=== PATIENT | female | born 1970 | race Caucasian/White ===

== ENCOUNTER 2016-09-01 21:19 | Emergency (ER) | payer OTHER ==
[~2016-09-01] VITALS: Ht 157.5 cm; Wt 64.8 kg
[~2016-09-01 21:19] MED LIST: ADVAIR 250/501 DISK IH; ADVAIR HFA120 INHALA IH; AERONEB GO NEB1 EACH MC; ANAPROX DS550 M1 PO; ATARAX,VISTARIL25 MG PO; ATIVAN1 MG PO; AUGMENTIN875 MG; BENTYL10 MG PO; CLEOCIN300 MG PO; COLACE100 MG PO; DUONEB 2.5-0.5 M3 ML AEROSOL; EUCERIN CREME120 GM TP; FLEXERIL10 MG PO; GLYBURIDE5 MG PO; HALOBETASOL PRO15 GM TP; HYDROCORTISONE60 GM TP; IBUPROFEN800 MG PO; KEFLEX500 MG PO; KEPPRA250 MG PO; KEPPRA500 MG PO; LEVEMIR FL100 UNIT/1 SC; LEVETIRACETAM500 MG PO; LEVOFLOXACIN750 MG PO; LORATADINE10 M2 PO; MILLIPRED DP5 M1 PO; MOTRIN800 MG PO; MUCINEX600 MG PO; NOHOMEMEDS; NOVOLOG PE100 UNITS/ SC; OXYCODONE30 MG PO; PEN-VEE K,VEET500 MG PO; PREDNISONE20 MG PO; PROMETHAZINE HC25 M1 PO; SIMVASTATIN40 MG PO; TORADOL10 MG PO; VENTOLIN HFA18 GM IH; VICODIN 5-5001 EACH PO; ZOFRAN ODT4 MG PO; ZOFRAN4 MG PO
[2016-09-01 21:46] LABS: POINT-OF-CARE METER ID UU13113778
[2016-09-01 22:53] LABS: HEMATOCRIT 42.2 % (36.0-46.0); MCH 29.2 PG (29.0-34.0); MCHC 32.7 G/DL (30.0-36.0); MCV 89.4 FL (83-99); MEAN PLAT.VOLUME 9.4 uM^3 (9.5-12.4); PLATELET COUNT 353 K/uL (156-360); RBC DIS.WIDTH-CV 14.6 % (11.8-14.6); RBC DIS.WIDTH-SD 47.2 % (39-53); RED BLOOD COUNT 4.72 M/uL (3.80-5.20); WHITE BLOOD COUNT 12.6 K/uL (4.1-10.2)
[2016-09-01 22:58] LABS: ADD MIUA? NO; BILIRUBIN NEGATIVE; BLOOD NEGATIVE; COLOR STRAW ((YELLOW)); GLUCOSE (STRIP) >=500; KETONES NEGATIVE; LEUKOCYTES NEGATIVE; NITRITE NEGATIVE; PROTEIN (STRIP) NEGATIVE; SPECIFIC GRAVITY 1.001 (1.000-1.030); UCUL ADDED? NO; UROBILINOGEN 0.2 MG/DL (0.2-1.0)
[2016-09-01 23:01] LABS: CARBON DIOXIDE (BICARBONATE) 23.9 MEQ/L (20-31); CHLORIDE 109 mEq/L (99-109); POTASSIUM 3.8 mEq/L (3.7-5.4); SODIUM 140 mEq/L (136-147)
[2016-09-01 23:02] LABS: GLUCOSE 249 mg/dL (70-99)
[2016-09-01 23:04] LABS: ANION GAP 10 MEQ/L (2-14)
[2016-09-01 23:05] LABS: SERUM ETHYL ALCOHOL < 10 mg/dL
[2016-09-01 23:06] LABS: GFR ESTIMATE (CALCULATED) > 59 mL/min/
[2016-09-01 23:06] LABS: AMPHETAMINE NEGATIVE (500 ng/mL); BARBITURATES NEGATIVE (200 ng/mL); BENZODIAZEPINES NEGATIVE (150 ng/mL); COCAINE NEGATIVE (150 ng/mL); INTERNAL CONTROLS VALID? YES; METHADONE NEGATIVE (200 ng/mL); METHAMPHETAMINE NEGATIVE (500 ng/mL); OPIATES (MORPHINE) NEGATIVE (100 ng/mL); OXYCODONE NEGATIVE (100 ng/mL); PHENCYCLIDINE NEGATIVE (25 ng/mL); PROPOXYPHENE NEGATIVE (300 ng/mL); THC CANNABINOIDS NEGATIVE (50 ng/mL); TRICYCLIC ANTIDEPRESSANTS NEGATIVE (300 ng/mL)
[2016-09-01 23:07] LABS: UREA NITROGEN (BUN) 11 mg/dL (9-23)
[2016-09-01 23:09] LABS: CREATINE KINASE 79 IU/L (1-294); TOTAL CK 79 IU/L (1-294)
[2016-09-01 23:13] LABS: TROP-I INTERPRETATION NEGATIVE; TROPONIN-I < 0.01 ng/mL (0.0-0.30)
[2016-09-01 23:14] LABS: QUANTITATIVE HCG < 4.0 MIU/ML
[2016-09-01 23:15] LABS: CK-MB 1.3 ng/mL (0.0-4.9)
[2016-09-02 00:35] LABS: POINT-OF-CARE METER ID UU13113702
[2016-09-02 01:02] VITALS: BP 112/77
== END 2016-09-02 01:18 | disposition home or self-care (01) ==
LOC: EME 21:19
PROVIDERS: Emergency Medicine
DX: F41.1 Generalized anxiety disorder (principal); E11.65 Type 2 diabetes mellitus with hyperglycemia
CPT/HCPCS: 71020; 80048; 81003; 82550; 82553; 82803; 82948; 84484; 84702; 85027; 85379; 99281; 99285; G0480; J1885; J3010; J7030

== ENCOUNTER 2016-09-23 18:39 | Emergency (ER) | payer OTHER ==
[~2016-09-23] VITALS: Ht 157.5 cm; Wt 65.6 kg
[2016-09-23 22:20] LABS: HEMATOCRIT 45.9 % (36.0-46.0); MCH 29.2 PG (29.0-34.0); MCHC 32.7 G/DL (30.0-36.0); MCV 89.5 FL (83-99); MEAN PLAT.VOLUME 9.4 uM^3 (9.5-12.4); PLATELET COUNT 430 K/uL (156-360); RBC DIS.WIDTH-CV 14.1 % (11.8-14.6); RBC DIS.WIDTH-SD 46.4 % (39-53); RED BLOOD COUNT 5.13 M/uL (3.80-5.20); WHITE BLOOD COUNT 15.6 K/uL (4.1-10.2)
[2016-09-23 22:31] LABS: CHLORIDE 110 mEq/L (99-109); POTASSIUM 4.2 mEq/L (3.7-5.4); SODIUM 139 mEq/L (136-147)
[2016-09-23 22:33] LABS: GLUCOSE 181 mg/dL (70-99)
[2016-09-23 22:35] LABS: ANION GAP 11 MEQ/L (2-14); TOTAL BILIRUBIN 0.2 mg/dL (0.0-1.0)
[2016-09-23 22:37] LABS: ALKALINE PHOSPHATASE 89 IU/L (3-129); GFR ESTIMATE (CALCULATED) > 59 mL/min/
[2016-09-23 22:38] LABS: UREA NITROGEN (BUN) 11 mg/dL (9-23)
[2016-09-23 22:57] LABS: INTERNAL CONTROL VALID? YES; MONOSPOT (MONONUCLEOSIS SEROL) NEGATIVE
[2016-09-23 23:11] LABS: INFLUENZA A VIRAL ANTIGEN NEGATIVE; INFLUENZA B VIRAL ANTIGEN NEGATIVE
[2016-09-24] MEDS ORDERED: AUGMENTIN875 MG PO (00:51)
[2016-09-24] MEDS ORDERED: ATIVAN1 MG PO (00:51)
[2016-09-24 01:05] VITALS: BP 134/108
== END 2016-09-24 01:14 | disposition home or self-care (01) ==
LOC: EME 18:39
PROVIDERS: Physician Assistant
DX: J02.9 Acute pharyngitis, unspecified (principal); F41.1 Generalized anxiety disorder; R59.1 Generalized enlarged lymph nodes; Z85.841 Personal history of malignant neoplasm of brain; Z88.6 Allergy status to analgesic agent
CPT/HCPCS: 70491; 80053; 85027; 86308; 87502; 87651 90; 99281; 99285; J1200; J2060; J2765; J7030

== ENCOUNTER 2017-01-12 01:34 | Emergency (ER) | payer OTHER ==
[~2017-01-12] VITALS: Ht 157.5 cm; Wt 62.7 kg
[~2017-01-12 01:34] MED LIST changes: +AUGMENTIN875 MG PO
[2017-01-12] MEDS ORDERED: BACTRIM,SEPT1 TABLET PO (02:31)
[2017-01-12 02:39] VITALS: BP 149/84
== END 2017-01-12 02:40 | disposition home or self-care (01) ==
LOC: EME 01:34
PROC: 0H90XZZ Drainage of Scalp Skin, External Approach (ICD-10-PCS; principal; 2017-01-12)
DX: L02.811 Cutaneous abscess of head [any part, except face] (principal); Z87.891 Personal history of nicotine dependence
CPT/HCPCS: 99281; 99284

== ENCOUNTER 2017-01-16 02:41 | Emergency (ER) | payer OTHER ==
[~2017-01-16] VITALS: Ht 157.5 cm; Wt 62.9 kg
[~2017-01-16 02:41] MED LIST changes: +BACTRIM,SEPT1 TABLET PO
[2017-01-16] MEDS ORDERED: GABAPENTIN800 MG PO (02:51)
[2017-01-16] MEDS ORDERED: FLEXERIL10 MG PO (02:52)
[2017-01-16] MEDS ORDERED: MOBIC15 MG PO (02:52)
[2017-01-16] MEDS ORDERED: METFORMIN HCL750 MG PO (02:52)
[2017-01-16] MEDS ORDERED: FLUCONAZOLE150 MG PO (03:49)
[2017-01-16 04:15] VITALS: BP 130/95
== END 2017-01-16 04:16 | disposition home or self-care (01) ==
LOC: EME 02:41
PROC: 0H90XZZ Drainage of Scalp Skin, External Approach (ICD-10-PCS; principal; 2017-01-16)
DX: L02.811 Cutaneous abscess of head [any part, except face] (principal); B37.3 Candidiasis of vulva and vagina; E11.9 Type 2 diabetes mellitus without complications; Z79.84 Long term (current) use of oral hypoglycemic drugs; Z85.841 Personal history of malignant neoplasm of brain; Z87.891 Personal history of nicotine dependence
CPT/HCPCS: 99281; 99284

== ENCOUNTER 2017-02-03 02:20 | Emergency (ER) | payer OTHER ==
[~2017-02-03] VITALS: Ht 157.5 cm; Wt 61.0 kg
[~2017-02-03 02:20] MED LIST changes: +FLUCONAZOLE150 MG PO; +GABAPENTIN800 MG PO; +METFORMIN HCL750 MG PO; +MOBIC15 MG PO
[2017-02-03] MEDS ORDERED: NAPROSYN500 MG PO (03:09)
[2017-02-03] MEDS ORDERED: CLEOCIN300 MG PO (03:09)
[2017-02-03 03:40] VITALS: BP 138/100
== END 2017-02-03 03:42 | disposition home or self-care (01) ==
LOC: EME 02:20
PROC: 0H9BXZZ Drainage of Right Upper Arm Skin, External Approach (ICD-10-PCS; principal; 2017-02-03)
DX: L02.411 Cutaneous abscess of right axilla (principal); E11.9 Type 2 diabetes mellitus without complications; Z79.84 Long term (current) use of oral hypoglycemic drugs; Z87.891 Personal history of nicotine dependence
CPT/HCPCS: 87070; 87075; 87076; 87205; 99281; 99283

== ENCOUNTER 2017-02-12 15:09 | Emergency (ER) | payer OTHER ==
[~2017-02-12] VITALS: Ht 157.5 cm; Wt 61.8 kg
[~2017-02-12 15:09] MED LIST changes: +NAPROSYN500 MG PO
[2017-02-12] MEDS ORDERED: [UNRECOGNIZED DRUG - OTHER] VG (19:26)
[2017-02-12 20:06] VITALS: BP 124/91
== END 2017-02-12 20:07 | disposition home or self-care (01) ==
LOC: EME 15:09
PROC: 0H9BXZZ Drainage of Right Upper Arm Skin, External Approach (ICD-10-PCS; principal; 2017-02-12)
DX: M79.621 Pain in right upper arm (principal); E11.9 Type 2 diabetes mellitus without complications; Z79.84 Long term (current) use of oral hypoglycemic drugs; R56.9 Unspecified convulsions; Z79.891 Long term (current) use of opiate analgesic
CPT/HCPCS: 99281; 99284

== ENCOUNTER 2017-03-09 23:55 | Emergency (ER) | payer OTHER ==
[~2017-03-09] VITALS: Ht 157.5 cm; Wt 63.0 kg
[~2017-03-09 23:55] MED LIST changes: +[UNRECOGNIZED DRUG - OTHER] VG
[2017-03-10 00:20] LABS: POINT-OF-CARE METER ID UU13113778
[2017-03-10 01:26] LABS: MCH 29.3 PG (29.0-34.0); MCHC 32.6 G/DL (30.0-36.0); MCV 89.7 FL (83-99); MEAN PLAT.VOLUME 10.1 uM^3 (9.5-12.4); PLATELET COUNT 338 K/uL (156-360); RBC DIS.WIDTH-CV 13.8 % (11.8-14.6); RBC DIS.WIDTH-SD 44.5 % (39-53); RED BLOOD COUNT 4.68 M/uL (3.80-5.20)
[2017-03-10 01:37] LABS: CHLORIDE 104 mEq/L (99-109); POTASSIUM 4.4 mEq/L (3.7-5.4); SODIUM 133 mEq/L (136-147)
[2017-03-10 01:40] LABS: ANION GAP 13 MEQ/L (2-14)
[2017-03-10 01:43] LABS: GFR ESTIMATE (CALCULATED) > 59 mL/min/
[2017-03-10 01:44] LABS: UREA NITROGEN (BUN) 10 mg/dL (9-23)
[2017-03-10 01:47] LABS: GLUCOSE 424 mg/dL (70-99)
[2017-03-10 01:51] LABS: CARBON DIOXIDE (BICARBONATE) 22.2 MEQ/L (20-31)
[2017-03-10 02:22] LABS: ADD MIUA? YES; BILIRUBIN NEGATIVE; BLOOD SMALL; COLOR STRAW ((YELLOW)); GLUCOSE (STRIP) >=500; KETONES NEGATIVE; LEUKOCYTES TRACE; NITRITE NEGATIVE; PROTEIN (STRIP) NEGATIVE; SPECIFIC GRAVITY 1.018 (1.000-1.030); UROBILINOGEN 0.2 MG/DL (0.2-1.0)
[2017-03-10 02:32] LABS: BACTERIA NONE SEEN /HPF; EPITHELIAL CELLS RARE /HPF; MUCUS NONE SEEN /LPF; RED BLOOD CELLS 0-5 /HPF (0-5); UCUL ADDED? NO; WHITE BLOOD CELLS 0-5 /HPF (0-5)
[2017-03-10 02:54] LABS: POINT-OF-CARE METER ID UU13113778; POINT-OF-CARE USER ID 515033160
[2017-03-10 03:13] VITALS: BP 114/69
== END 2017-03-10 03:13 | disposition home or self-care (01) ==
LOC: EME 23:55 → EXP 23:55
PROVIDERS: Physician Assistant
DX: E11.65 Type 2 diabetes mellitus with hyperglycemia (principal); Z79.84 Long term (current) use of oral hypoglycemic drugs; G40.909 Epilepsy, unspecified, not intractable, without status epilepticus; Z88.6 Allergy status to analgesic agent; Z87.891 Personal history of nicotine dependence
CPT/HCPCS: 71020; 80048; 81003; 82010; 82803; 82948; 85027; 94640; 99281; 99284; J7030

== ENCOUNTER 2017-09-04 20:33 | Observation (INO) | payer OTHER ==
[~2017-09-04] VITALS: Ht 157.5 cm; Wt 68.5 kg
[2017-09-04 21:01] LABS: HEMATOCRIT 43.5 % (36.0-46.0); HEMOGLOBIN 14.4 G/DL (11.9-15.5); MCH 28.3 PG (29.0-34.0); MCHC 33.1 G/DL (30.0-36.0); MCV 85.5 FL (83-99); PLATELET COUNT 467 K/uL (156-360); RBC DIS.WIDTH-CV 14.5 % (11.8-14.6); RBC DIS.WIDTH-SD 45.3 % (39-53); RED BLOOD COUNT 5.09 M/uL (3.80-5.20); WHITE BLOOD COUNT 15.7 K/uL (4.1-10.2)
[2017-09-04 21:13] LABS: CHLORIDE 106 mEq/L (99-109); POTASSIUM 4.2 mEq/L (3.7-5.4); SODIUM 138 mEq/L (136-147)
[2017-09-04 21:15] LABS: GLUCOSE 218 mg/dL (70-99)
[2017-09-04 21:19] LABS: CREATININE 0.9 mg/dL (0.6-1.3); GFR ESTIMATE (CALCULATED) > 59 mL/min/
[2017-09-04 21:20] LABS: UREA NITROGEN (BUN) 16 mg/dL (9-23)
[2017-09-04 21:27] LABS: TROP-I INTERPRETATION NEGATIVE; TROPONIN-I 0.03 ng/mL (0.0-0.30)
[2017-09-05 01:03] LABS: TROP-I INTERPRETATION NEGATIVE; TROPONIN-I 0.08 ng/mL (0.0-0.30)
[2017-09-05 05:05] VITALS: BP 129/86
[2017-09-05 07:30] VITALS: BP 122/88
[2017-09-05 09:16] LABS: TROP-I INTERPRETATION NEGATIVE; TROPONIN-I 0.09 ng/mL (0.0-0.30)
[2017-09-05] MEDS ORDERED: AZITHROMYCIN250 MG1 PO (10:49)
[2017-09-05] MEDS ORDERED: DELTASONE20 M1 PO (10:49)
[2017-09-05] MEDS ORDERED: BASAGLAR K100 UNIT/1 SC ×2 (11:08→11:09)
[2017-09-05] MEDS ORDERED: VENTOLIN HFA18 GM IH (11:10)
[2017-09-05] MEDS ORDERED: GLIMEPIRIDE4 MG PO (11:10)
[2017-09-05] MEDS ORDERED: MORPHINE SULFAT15 M1 PO (11:10)
[2017-09-05] MEDS ORDERED: OXYCODONE HCL10 MG PO (11:11)
[2017-09-05] MEDS ORDERED: ADVAIR 250/501 DISK IH (11:11)
[2017-09-05] MEDS ORDERED: SIMVASTATIN40 MG PO (11:12)
[2017-09-05] MEDS ORDERED: CLOBETASOL PROP50 ML TP (11:12)
[2017-09-05 11:17] VITALS: BP 119/79
[2017-09-06] MEDS ORDERED: ALBUTEROL2.5 MG/0.5 IH (21:06)
[2017-09-06] MEDS ORDERED: DELTASONE20 M1 PO (21:10)
[2017-09-06] MEDS ORDERED: AZITHROMYCIN250 MG1 PO (21:11)
[2017-09-06] MEDS ORDERED: CLARITIN10 MG PO (21:15)
== END 2017-09-05 13:32 | disposition home or self-care (01) ==
LOC: EME 20:33 → ENPENDDIS 09-05 → EDOF 09-05 04:14 → ENRESERV 09-05 04:15 → 5WEST 09-05 05:00
PROVIDERS: Hospitalist; Physician Assistant
DX: R07.81 Pleurodynia (principal); R06.2 Wheezing; J44.9 Chronic obstructive pulmonary disease, unspecified; G40.802 Other epilepsy, not intractable, without status epilepticus; E11.9 Type 2 diabetes mellitus without complications; Z85.841 Personal history of malignant neoplasm of brain; Z79.4 Long term (current) use of insulin; R00.0 Tachycardia, unspecified; Z88.5 Allergy status to narcotic agent; Z88.6 Allergy status to analgesic agent; Z88.8 Allergy status to other drugs, medicaments and biological substances; Z87.891 Personal history of nicotine dependence; Z79.84 Long term (current) use of oral hypoglycemic drugs
CPT/HCPCS: 71046; 71275; 80048; 82948; 84484; 85027; 93005; 94640; 94640 76; 99281; 99285; G0378; J1170; J7030; J7512

== ENCOUNTER 2017-09-06 18:14 | Inpatient (IN) | payer OTHER ==
[~2017-09-06] VITALS: Ht 157.5 cm; Wt 66.3 kg
[~2017-09-06 18:14] MED LIST changes: +AZITHROMYCIN250 MG1 PO; +BASAGLAR K100 UNIT/1 SC; +CLOBETASOL PROP50 ML TP; +DELTASONE20 M1 PO; +GLIMEPIRIDE4 MG PO; +MORPHINE SULFAT15 M1 PO; +OXYCODONE HCL10 MG PO
[2017-09-06 19:38] LABS: BASOPHIL (%) 0.3 % (0-1); BASOPHIL COUNT 0.1 K/uL (0-0.1); EOSINOPHIL (%) 0.1 % (0-5); HEMATOCRIT 48.1 % (36.0-46.0); HEMOGLOBIN 15.8 G/DL (11.9-15.5); IMMATURE GRANULOCYTE (%) 0.5 % (0.0-0.7); LYMPHOCYTE (%) 5.8 % (15-42); MCH 28.4 PG (29.0-34.0); MCHC 32.8 G/DL (30.0-36.0); MCV 86.5 FL (83-99); MONOCYTE COUNT 0.3 K/uL (0-0.8); NEUTROPHIL (%) 91.3 % (45-76); PLATELET COUNT 513 K/uL (156-360); RBC DIS.WIDTH-CV 14.5 % (11.8-14.6); RED BLOOD COUNT 5.56 M/uL (3.80-5.20); WHITE BLOOD COUNT 16.4 K/uL (4.1-10.2)
[2017-09-06 19:46] LABS: D-DIMER ELISA < 150.00 ng/mLDDU (<230)
[2017-09-06 19:47] LABS: CHLORIDE 102 mEq/L (99-109); SODIUM 133 mEq/L (136-147)
[2017-09-06 19:52] LABS: CREATININE 1.1 mg/dL (0.6-1.3); GFR ESTIMATE (CALCULATED) 57 mL/min/
[2017-09-06 19:53] LABS: UREA NITROGEN (BUN) 17 mg/dL (9-23)
[2017-09-06 19:58] LABS: TROP-I INTERPRETATION POSITIVE
[2017-09-06 20:01] LABS: GLUCOSE 551 mg/dL (70-99); POTASSIUM 5.3 mEq/L (3.7-5.4)
[2017-09-06 20:21] LABS: ALBUMIN 4.5 g/dL (3.2-4.8)
[2017-09-06 20:23] LABS: TOTAL PROTEIN 8.8 g/dL (6.4-8.3)
[2017-09-06 20:25] LABS: TOTAL BILIRUBIN 0.3 mg/dL (0.0-1.0)
[2017-09-06 20:26] LABS: ALKALINE PHOSPHATASE 111 IU/L (3-129)
[2017-09-06 20:29] LABS: ALT (GPT) 27 IU/L (3-49); AST (GOT) 31 IU/L (2-34); DIRECT BILIRUBIN 0.2 mg/dL (0.0-0.3)
[2017-09-06 20:30] LABS: LIPASE 24 U/L (1.0-51.0)
[2017-09-06 20:33] LABS: INTER. NORMALIZED RATIO 1.1
[2017-09-06 20:59] LABS: PTT 32.3 SEC (25-37)
[2017-09-06] MEDS ORDERED: ALBUTEROL2.5 MG/0.5 IH (21:06)
[2017-09-06] MEDS ORDERED: DELTASONE20 M1 PO (21:10)
[2017-09-06] MEDS ORDERED: AZITHROMYCIN250 MG1 PO (21:11)
[2017-09-06] MEDS ORDERED: CLARITIN10 MG PO (21:15)
[2017-09-06 22:37] VITALS: BP 134/82
[2017-09-07 03:14] LABS: HEMATOCRIT 40.2 % (36.0-46.0); HEMOGLOBIN 13.4 G/DL (11.9-15.5); MCH 28.5 PG (29.0-34.0); MCHC 33.3 G/DL (30.0-36.0); MCV 85.4 FL (83-99); PLATELET COUNT 465 K/uL (156-360); RBC DIS.WIDTH-CV 14.5 % (11.8-14.6); RBC DIS.WIDTH-SD 44.6 % (39-53); RED BLOOD COUNT 4.71 M/uL (3.80-5.20); WHITE BLOOD COUNT 22.6 K/uL (4.1-10.2)
[2017-09-07 03:19] LABS: CHLORIDE 111 mEq/L (99-109); SODIUM 137 mEq/L (136-147)
[2017-09-07 03:24] LABS: CREATININE 0.8 mg/dL (0.6-1.3); GFR ESTIMATE (CALCULATED) > 59 mL/min/
[2017-09-07 03:25] LABS: UREA NITROGEN (BUN) 15 mg/dL (9-23)
[2017-09-07 03:30] LABS: GLUCOSE 195 mg/dL (70-99); POTASSIUM 4.2 mEq/L (3.7-5.4)
[2017-09-07 05:01] VITALS: BP 128/62
[2017-09-07 07:37] LABS: INTER. NORMALIZED RATIO 1.1
[2017-09-07 07:40] LABS: PTT 46.4 SEC (25-37)
[2017-09-07 08:00] LABS: TROP-I INTERPRETATION POSITIVE; TROPONIN-I 4.89 ng/mL (0.0-0.30)
[2017-09-07 08:40] VITALS: BP 127/67
[2017-09-07 11:18] VITALS: BP 119/87
[2017-09-07 16:04] VITALS: BP 129/75
[2017-09-07 20:00] VITALS: BP 118/76
[2017-09-08 01:00] VITALS: BP 110/70
[2017-09-08 04:15] VITALS: BP 97/56
[2017-09-08 05:34] LABS: BASOPHIL (%) 0.7 % (0-1); BASOPHIL COUNT 0.1 K/uL (0-0.1); EOSINOPHIL (%) 1.8 % (0-5); EOSINOPHIL COUNT 0.3 K/uL (0-0.3); HEMATOCRIT 39.8 % (36.0-46.0); HEMOGLOBIN 12.6 G/DL (11.9-15.5); IMMATURE GRANULOCYTE (%) 0.6 % (0.0-0.7); MCH 27.2 PG (29.0-34.0); MCHC 31.7 G/DL (30.0-36.0); MCV 85.8 FL (83-99); MONOCYTE (%) 7.8 % (3-12); MONOCYTE COUNT 1.4 K/uL (0-0.8); NEUTROPHIL (%) 67.1 % (45-76); PLATELET COUNT 426 K/uL (156-360); RBC DIS.WIDTH-CV 14.7 % (11.8-14.6); RED BLOOD COUNT 4.64 M/uL (3.80-5.20); WHITE BLOOD COUNT 17.9 K/uL (4.1-10.2)
[2017-09-08 06:02] LABS: CHLORIDE 109 MEQ/L (99-109); CREATININE 0.7 MG/DL (0.6-1.3); GFR ESTIMATE (CALCULATED) > 59 mL/min/; GLUCOSE 208 mg/dL (70-99); POTASSIUM 4.3 MEQ/L (3.7-5.4); SODIUM 136 MEQ/L (136-147); UREA NITROGEN (BUN) 16 mg/dL (9-23)
[2017-09-08 08:41] VITALS: BP 126/76
[2017-09-08] MEDS ORDERED: ASPIR-LOW81 MG PO (09:29)
[2017-09-08] MEDS ORDERED: LOPRESSOR25 MG PO (09:29)
[2017-09-08] MEDS ORDERED: CLOPIDOGREL75 MG PO (09:29)
[2017-09-08] MEDS ORDERED: DULERA 100 MCG/13 GM IH (09:43)
== END 2017-09-08 12:27 | disposition home or self-care (01) | DRG 246 ==
LOC: EME 18:14 → 4EAST 20:54 → EDOF 20:54 → ENRESERV 20:55 → 4EAST 21:56 → ENPENDDIS 09-08 → 4EAST 09-08 12:27
PROVIDERS: Emergency Medicine; Hospitalist; Internal Medicine
DX: I21.4 Non-ST elevation (NSTEMI) myocardial infarction (principal); E11.65 Type 2 diabetes mellitus with hyperglycemia; J44.9 Chronic obstructive pulmonary disease, unspecified; G40.909 Epilepsy, unspecified, not intractable, without status epilepticus; J44.1 Chronic obstructive pulmonary disease with (acute) exacerbation; I11.0 Hypertensive heart disease with heart failure; E78.5 Hyperlipidemia, unspecified; G89.29 Other chronic pain; D72.829 Elevated white blood cell count, unspecified; T38.0X5A Adverse effect of glucocorticoids and synthetic analogues, initial encounter; I25.10 Atherosclerotic heart disease of native coronary artery without angina pectoris; I50.21 Acute systolic (congestive) heart failure; Z79.4 Long term (current) use of insulin; Z79.899 Other long term (current) drug therapy; Z87.891 Personal history of nicotine dependence; Z85.841 Personal history of malignant neoplasm of brain
CPT/HCPCS: 71046; 80048; 80076; 82010; 82948; 83690; 83735; 83880; 84484; 85025; 85027; 85347; 85379; 85610; 85730; 86850; 86900; 86901; 93005; 93306; 94640; 94640 76; 99202; 99281; 99285; C1725; C1769; C1874; C1887; J1644; J1815; J2250; J3010; J3246; J7030; J7512

== ENCOUNTER 2018-02-22 22:07 | Inpatient (IN) | payer OTHER ==
[~2018-02-22] VITALS: Ht 157.5 cm; Wt 67.2 kg
[~2018-02-22 22:07] MED LIST changes: +ALBUTEROL2.5 MG/0.5 IH; +ASPIR-LOW81 MG PO; +CLARITIN10 MG PO; +CLOPIDOGREL75 MG PO; +DULERA 100 MCG/13 GM IH; +LOPRESSOR25 MG PO
[2018-02-22 22:42] LABS: HEMATOCRIT 41.2 % (36.0-46.0); HEMOGLOBIN 13.2 G/DL (11.9-15.5); MCH 28.1 PG (29.0-34.0); MCV 87.8 FL (83-99); PLATELET COUNT 420 K/uL (156-360); RBC DIS.WIDTH-SD 48.2 % (39-53); RED BLOOD COUNT 4.69 M/uL (3.80-5.20); WHITE BLOOD COUNT 22.7 K/uL (4.1-10.2)
[2018-02-22 23:09] LABS: TROP-I INTERPRETATION NEGATIVE; TROPONIN-I < 0.01 ng/mL (0.0-0.30)
[2018-02-22 23:26] LABS: ALBUMIN 3.9 g/dL (3.2-4.8); CHLORIDE 110 mEq/L (99-109); POTASSIUM 4.4 mEq/L (3.7-5.4); SODIUM 137 mEq/L (136-147)
[2018-02-22 23:27] LABS: MAGNESIUM 2.3 mg/dL (1.3-2.7)
[2018-02-22 23:29] LABS: GLUCOSE 137 mg/dL (70-99); TOTAL PROTEIN 7.1 g/dL (6.4-8.3)
[2018-02-22 23:30] LABS: TOTAL BILIRUBIN 0.4 mg/dL (0.0-1.0)
[2018-02-22 23:32] LABS: ALKALINE PHOSPHATASE 83 IU/L (3-129); CREATININE 0.7 mg/dL (0.6-1.3); GFR ESTIMATE (CALCULATED) > 59 mL/min/; PHOSPHORUS 3.5 mg/dL (2.5-4.9)
[2018-02-22 23:33] LABS: UREA NITROGEN (BUN) 7 mg/dL (9-23)
[2018-02-22 23:34] LABS: AST (GOT) 13 IU/L (2-34)
[2018-02-22 23:35] LABS: ALT (GPT) 9 IU/L (3-49)
[2018-02-23] VITALS (8 sets, daily range): BP systolic 104–158; BP diastolic 69–98
[2018-02-23 01:08] LABS: LIPASE 8 U/L (1.0-51.0)
[2018-02-23 01:13] LABS: APPEARANCE CLEAR ((CLEAR)); BILIRUBIN NEGATIVE; BLOOD NEGATIVE; COLOR YELLOW ((YELLOW)); GLUCOSE (STRIP) NEGATIVE; KETONES NEGATIVE; LEUKOCYTES NEGATIVE; NITRITE POSITIVE; PROTEIN (STRIP) NEGATIVE; SPECIFIC GRAVITY 1.048 (1.000-1.030); UROBILINOGEN 0.2 MG/DL (0.2-1.0)
[2018-02-23] MEDS ORDERED: PLAVIX75 MG PO (01:16)
[2018-02-23 01:17] LABS: BACTERIA RARE /HPF; EPITHELIAL CELLS 1+ /HPF; MUCUS TRACE /LPF; RED BLOOD CELLS 0-5 /HPF (0-5); UCUL ADDED? NO; WHITE BLOOD CELLS 0-5 /HPF (0-5)
[2018-02-23] MEDS ORDERED: DULCOEASE100 MG PO (01:20)
[2018-02-23] MEDS ORDERED: METFORMIN HCL750 MG PO (01:21)
[2018-02-23] MEDS ORDERED: DULERA 200 MCG/13 GM IH (01:21)
[2018-02-23] MEDS ORDERED: TIZANIDINE HCL2 MG PO (01:21)
[2018-02-23] MEDS ORDERED: LORATADINE10 M2 PO (01:22)
[2018-02-23] MEDS ORDERED: ATORVASTATIN CA40 MG PO (01:22)
[2018-02-23] MEDS ORDERED: CYCLOBENZAPRINE10 MG PO (01:23)
[2018-02-23 06:07] LABS: TROP-I INTERPRETATION NEGATIVE; TROPONIN-I < 0.01 ng/mL (0.0-0.30)
[2018-02-23 08:56] LABS: HEMATOCRIT 39.7 % (36.0-46.0); HEMOGLOBIN 12.5 G/DL (11.9-15.5); MCH 28.1 PG (29.0-34.0); MCHC 31.5 G/DL (30.0-36.0); MCV 89.2 FL (83-99); PLATELET COUNT 478 K/uL (156-360); RBC DIS.WIDTH-SD 49.2 % (39-53); RED BLOOD COUNT 4.45 M/uL (3.80-5.20); WHITE BLOOD COUNT 13.8 K/uL (4.1-10.2)
[2018-02-23 09:52] LABS: ALKALINE PHOSPHATASE 79 IU/L (3-129); ALT (GPT) 7 IU/L (3-49); AST (GOT) 10 IU/L (2-34); CHLORIDE 112 MEQ/L (99-109); CREATININE 0.7 MG/DL (0.6-1.3); GFR ESTIMATE (CALCULATED) > 59 mL/min/; GLUCOSE 119 mg/dL (70-99); POTASSIUM 4.6 MEQ/L (3.7-5.4); SODIUM 141 MEQ/L (136-147); TOTAL BILIRUBIN 0.2 MG/DL (0.0-1.0); TOTAL PROTEIN 6.9 G/DL (6.4-8.3); UREA NITROGEN (BUN) 5 mg/dL (9-23)
[2018-02-23 12:24] LABS: TROP-I INTERPRETATION NEGATIVE; TROPONIN-I < 0.01 ng/mL (0.0-0.30)
[2018-02-23 19:07] LABS: TROP-I INTERPRETATION NEGATIVE; TROPONIN-I < 0.01 ng/mL (0.0-0.30)
[2018-02-24 01:15] LABS: TROP-I INTERPRETATION NEGATIVE; TROPONIN-I < 0.01 ng/mL (0.0-0.30)
[2018-02-24 04:25] VITALS: BP 107/70
[2018-02-24 05:50] LABS: BASOPHIL COUNT 0.1 K/uL (0-0.1); EOSINOPHIL (%) 4.4 % (0-5); EOSINOPHIL COUNT 0.5 K/uL (0-0.3); HEMATOCRIT 36.6 % (36.0-46.0); HEMOGLOBIN 11.6 G/DL (11.9-15.5); IMMATURE GRANULOCYTE (%) 0.5 % (0.0-0.7); LYMPHOCYTE (%) 32.3 % (15-42); LYMPHOCYTE COUNT 3.8 K/uL (1.0-2.8); MCHC 31.7 G/DL (30.0-36.0); MCV 88.4 FL (83-99); MONOCYTE (%) 7.9 % (3-12); MONOCYTE COUNT 0.9 K/uL (0-0.8); NEUTROPHIL (%) 53.9 % (45-76); NEUTROPHIL COUNT 6.3 K/uL (1.8-6.4); PLATELET COUNT 434 K/uL (156-360); RBC DIS.WIDTH-SD 48.5 % (39-53); RED BLOOD COUNT 4.14 M/uL (3.80-5.20); WHITE BLOOD COUNT 11.8 K/uL (4.1-10.2)
[2018-02-24 05:55] LABS: TROP-I INTERPRETATION NEGATIVE; TROPONIN-I < 0.01 ng/mL (0.0-0.30)
[2018-02-24 05:58] LABS: CHLORIDE 114 MEQ/L (99-109); CREATININE 0.6 MG/DL (0.6-1.3); GFR ESTIMATE (CALCULATED) > 59 mL/min/; GLUCOSE 93 mg/dL (70-99); POTASSIUM 4.5 MEQ/L (3.7-5.4); SODIUM 140 MEQ/L (136-147); UREA NITROGEN (BUN) 7 mg/dL (9-23)
[2018-02-24 08:34] VITALS: BP 137/85
[2018-02-24] MEDS ORDERED: NICOTINE PATCH1 EAC2 TD (08:56)
[2018-02-24] MEDS ORDERED: CARVEDILOL3.125 MG PO (08:57)
[2018-02-24] MEDS ORDERED: LEVAQUIN500 MG PO (08:58)
[2018-02-24] MEDS ORDERED: PEPCID20 MG PO (09:56)
[2018-02-24] MEDS ORDERED: NITROGLYCERIN0.4 MG SL (09:57)
[2018-02-24] MEDS ORDERED: BLOOD PRESSURE1 EA11 MC (09:57)
== END 2018-02-24 11:05 | disposition home or self-care (01) | DRG 308 ==
LOC: EME → EDBD 22:07 → EME 22:07 → EDOF 02-23 01:18 → 4EAST 02-23 01:18 → ENRESERV 02-23 01:20 → 4EAST 02-23 03:40 → ENPENDDIS 02-24 → 4EAST 02-24 11:05
PROVIDERS: Emergency Medicine; Hospitalist; Internal Medicine
PROC: 5A1223Z Performance of Cardiac Pacing, Continuous (ICD-10-PCS; principal; 2018-02-23)
DX: R00.1 Bradycardia, unspecified (principal); I95.2 Hypotension due to drugs; R55 Syncope and collapse; T46.3X5A Adverse effect of coronary vasodilators, initial encounter; J69.0 Pneumonitis due to inhalation of food and vomit; J44.9 Chronic obstructive pulmonary disease, unspecified; E86.0 Dehydration; E87.2 Acidosis; R07.9 Chest pain, unspecified; N39.0 Urinary tract infection, site not specified; G40.909 Epilepsy, unspecified, not intractable, without status epilepticus; Z85.841 Personal history of malignant neoplasm of brain; I25.10 Atherosclerotic heart disease of native coronary artery without angina pectoris; I25.5 Ischemic cardiomyopathy; I25.2 Old myocardial infarction; J98.11 Atelectasis; I10 Essential (primary) hypertension; E11.9 Type 2 diabetes mellitus without complications; G89.29 Other chronic pain; R19.7 Diarrhea, unspecified; L40.9 Psoriasis, unspecified; E78.5 Hyperlipidemia, unspecified; Z95.5 Presence of coronary angioplasty implant and graft; F17.210 Nicotine dependence, cigarettes, uncomplicated
CPT/HCPCS: 71045; 71275; 80048; 80053; 81003; 82948; 83605; 83690; 83735; 84100; 84484; 85025; 85027; 87040; 87070; 87205; 87449; 87493; 93005; 94760; 99281; 99285; C9113; J0456; J0696; J1650; J2405; J2765; J3010; J7030